=== PATIENT | female | born 1950 | race Hispanic/Latino ===

== ENCOUNTER 2022-12-06 05:54 | Observation (INO) | payer OTHER, MEDICARE ==
[2022-12-02 13:01] LABS: BASOPHILS # (AUTO) 0.03 K/uL (0.00-0.20); BASOPHILS % (AUTO) 0.4 % (0.0-5.0); EOSINOPHILS # (AUTO) 0.15 K/uL (0.00-0.70); EOSINOPHILS % (AUTO) 2.2 % (0.0-8.0); HEMATOCRIT 35.1 % (36-48); IMMATURE GRANULOCYTE ABSOLUTE 0.02 K/uL (0-1); LYMPHOCYTES # (AUTO) 2.3 K/uL (1.0-4.8); LYMPHOCYTES % (AUTO) 33.5 % (21.0-51.0); MEAN CORPUSCULAR HEMOGLOBIN 26.5 pg (27.0-33.0); MEAN CORPUSCULAR HGB CONC 30.8 g/dL (32.0-36.0); MEAN CORPUSCULAR VOLUME 86.2 fL (79-99); MONOCYTES # (AUTO) 0.7 K/uL (0.1-1.0); NEUTROPHILS # (AUTO) 3.6 K/uL (1.8-7.7); NEUTROPHILS % (AUTO) 53.6 % (40.0-77.0); PLATELET COUNT (AUTO) 252 K/uL (130-400); RED BLOOD CELL COUNT(AUTO) 4.07 MIL/uL (4.00-5.50); WHITE BLOOD COUNT (AUTO) 6.7 K/uL (4.8-10.8)
[2022-12-02 13:15] LABS: CREATININE 0.5 mg/dL (0.5-1.5); POTASSIUM 4.5 mmol/L (3.5-5.1)
[2022-12-02 13:18] LABS: INR 0.94 (0.85-1.15); PROTHROMBIN TIME 10.9 SEC (9.6-11.6)
[2022-12-02 13:19] LABS: PARTIAL THROMBOPLASTIN TIME 26.6 SEC (26.3-35.5)
[2022-12-02 13:32] VITALS: BP 148/65; PULSE 64; RESP 20
[~2022-12-06] VITALS: Ht 147.3 cm; Wt 54.4 kg
[2022-12-06] VITALS (26 sets, daily range): BP systolic 94–165; BP diastolic 53–80; PULSE 62–86; RESP 15–20; O2SAT 97–100
[~2022-12-06 05:54] MED LIST: ALEN70TA80 PO; CEFAZOLIN SODIUM 2 GM VIAL IVPB ONE; LEVO75CA5 PO; LISI10TA24 PO; OMEP40CA21 PO; PRAV20TA4 PO
[2022-12-06] MEDS ORDERED: CEFAZOLIN SODIUM 2 GM VIAL ONE (09:01)
[2022-12-06] MEDS ORDERED: LACTATED RINGERS 1000ML 1,000 ML IV ONE (09:02)
[2022-12-06] MEDS ORDERED: LIDOCAINE PF 100MG/5ML (2%) SYRINGE 5ML ONE (14:09)
[2022-12-06] MEDS ORDERED: PROPOFOL 10 MG/ML 20ML VIAL IV ONE (14:09)
[2022-12-06] MEDS ORDERED: ROCURONIUM 10MG/1ML SYR 10 MG/ML ML ONE (14:10)
[2022-12-06] MEDS ORDERED: FENTANYL CITRATE PF 50 MCG/1 ML 2ML VIAL ONE (14:10)
[2022-12-06] MEDS ORDERED: CEFAZOLIN SODIUM 2 GM VIAL IVPB ONE (14:20)
[2022-12-06] MEDS ORDERED: EPHEDRINE SULFATE 50 MG/ML AMPULE ONE (14:35)
[2022-12-06] MEDS ORDERED: ROPIVACAINE 0.5% 5MG/ML 30ML IJ ONE (15:52)
[2022-12-06] MEDS ORDERED: POTASSIUM CHLORIDE 10% ELIXIR 20 MEQ/15 ML UDCUP PO PRN (16:00)
[2022-12-06] MEDS ORDERED: POTASSIUM CHLORIDE 20MEQ/100ML 100 ML IV PRN (16:00)
[2022-12-06] MEDS ORDERED: KCL 20 MEQ ERTAB PO PRN (16:00)
[2022-12-06] MEDS ORDERED: HYDROCODONE/ACETAMINOPHEN 10/325 MG TAB PO PRN (16:00)
[2022-12-06] MEDS ORDERED: MEPERIDINE-PF 25 MG/ML SYG ONE ×2 (16:23→16:35)
[2022-12-06] MEDS ORDERED: ACETAMINOPHEN 1,000 MG/100 ML VIAL IV ONE (17:19)
[2022-12-06] MEDS: ACETAMINOPHEN 1,000 MG/100 ML VIAL IV SCH ×2 (17:20→22:02)
[2022-12-06] MEDS: 0.9%NACL 1000ML 1,000 ML IV SCH (17:49)
[2022-12-06] MEDS ORDERED: CALDOLOR 800MG+NS 250ML 250 ML IV ONE (17:50)
[2022-12-06] MEDS: IBUPROFEN 800MG + NS 250ML IV SCH (18:16)
[2022-12-06] MEDS: FAMOTIDINE 20MG TAB PO SCH (20:57)
[2022-12-06] MEDS: ASPIRIN 81 MG EC TAB PO SCH (20:57)
[2022-12-06] MEDS: CEFAZOLIN SODIUM 2 GM VIAL IVPB SCH (20:57)
[2022-12-06] MEDS: MORPHINE 4 MG SYG IVP PRN (21:01)
[2022-12-07] VITALS (9 sets, daily range): BP systolic 93–122; BP diastolic 48–60; PULSE 69–88; RESP 16–19; O2SAT 97–98
[2022-12-07] MEDS: IBUPROFEN 800MG + NS 250ML IV SCH ×2 (02:26→10:48)
[2022-12-07] MEDS: CEFAZOLIN SODIUM 2 GM VIAL IVPB SCH (03:15)
[2022-12-07] MEDS: 0.9%NACL 1000ML 1,000 ML IV SCH ×2 (03:16→11:21)
[2022-12-07] MEDS: ACETAMINOPHEN 1,000 MG/100 ML VIAL IV SCH (03:46)
[2022-12-07 03:53] LABS: HEMATOCRIT 28.7 % (36-48); MEAN CORPUSCULAR HEMOGLOBIN 26.5 pg (27.0-33.0); MEAN CORPUSCULAR HGB CONC 30.7 g/dL (32.0-36.0); MEAN CORPUSCULAR VOLUME 86.4 fL (79-99); RED BLOOD CELL COUNT(AUTO) 3.32 MIL/uL (4.00-5.50); WHITE BLOOD COUNT (AUTO) 5.8 K/uL (4.8-10.8)
[2022-12-07 04:05] LABS: CREATININE 0.5 mg/dL (0.5-1.5); POTASSIUM 3.9 mmol/L (3.5-5.1)
[2022-12-07] MEDS: MORPHINE 4 MG SYG IVP PRN (04:11)
[2022-12-07] MEDS: ONDANSETRON 4MG INJ IVP PRN ×2 (04:30→10:47)
[2022-12-07] MEDS: LEVOTHYROXINE 75 MCG TABLET PO SCH (07:02)
[2022-12-07] MEDS ORDERED: NON-FORMULARY MEDICATION 1 EACH (Levothyroxine Sodium (Levothyroxine) 75 MCG) PO SCH (07:30)
[2022-12-07] MEDS: ASPIRIN 81 MG EC TAB PO SCH ×2 (09:00→20:01)
[2022-12-07] MEDS: PANTOPRAZOLE 40 MG TAB DR PO SCH (09:00)
[2022-12-07] MEDS: FAMOTIDINE 20MG TAB PO SCH ×2 (09:00→20:01)
[2022-12-07] MEDS ORDERED: NON-FORMULARY MEDICATION 1 EACH (Omeprazole 40 MG) PO SCH (09:00)
[2022-12-07] MEDS: LISINOPRIL 10 MG TABLET PO SCH (09:00)
[2022-12-07] MEDS: POLYETHYLENE GLYCOL 3350 17 GM POWD.PACK PO SCH (09:01)
[2022-12-07] MEDS: FERROUS GLUCONATE 324MG TABLET.DR PO SCH (20:01)
[2022-12-07] MEDS: HYDROCODONE/ACETAMINOPHEN 5/325 MG TAB PO PRN (20:02)
[2022-12-08] VITALS (7 sets, daily range): BP systolic 115–134; BP diastolic 52–64; PULSE 77–91; RESP 16–19; O2SAT 96–97
[2022-12-08] MEDS: HYDROCODONE/ACETAMINOPHEN 5/325 MG TAB PO PRN ×3 (01:37→18:16)
[2022-12-08] MEDS: LEVOTHYROXINE 75 MCG TABLET PO SCH (05:04)
[2022-12-08] MEDS: FERROUS GLUCONATE 324MG TABLET.DR PO SCH ×2 (08:43→19:43)
[2022-12-08] MEDS: PANTOPRAZOLE 40 MG TAB DR PO SCH (08:43)
[2022-12-08] MEDS: POLYETHYLENE GLYCOL 3350 17 GM POWD.PACK PO SCH (08:43)
[2022-12-08] MEDS: ASPIRIN 81 MG EC TAB PO SCH ×2 (08:44→19:43)
[2022-12-08] MEDS: FAMOTIDINE 20MG TAB PO SCH ×2 (08:44→19:43)
[2022-12-08] MEDS: LISINOPRIL 10 MG TABLET PO SCH (08:45)
[2022-12-09 04:00] VITALS: BP 135/53; PULSE 84; RESP 16
[2022-12-09] MEDS: LEVOTHYROXINE 75 MCG TABLET PO SCH (05:27)
[2022-12-09 07:10] VITALS: O2SAT 97
[2022-12-09 08:00] VITALS: BP 131/59; PULSE 85; RESP 18
[2022-12-09] MEDS: FERROUS GLUCONATE 324MG TABLET.DR PO SCH (08:11)
[2022-12-09] MEDS: PANTOPRAZOLE 40 MG TAB DR PO SCH (08:11)
[2022-12-09] MEDS: FAMOTIDINE 20MG TAB PO SCH (08:11)
[2022-12-09] MEDS: ASPIRIN 81 MG EC TAB PO SCH (08:11)
[2022-12-09] MEDS: HYDROCODONE/ACETAMINOPHEN 5/325 MG TAB PO PRN (08:12)
[2022-12-09] MEDS: LISINOPRIL 10 MG TABLET PO SCH (08:12)
[2022-12-09] MEDS: POLYETHYLENE GLYCOL 3350 17 GM POWD.PACK PO SCH (08:12)
[2022-12-09] MEDS ORDERED: BISACODYL 10 MG SUPP.RECT RC PRN (16:00)
== END 2022-12-09 10:15 | disposition home or self-care (01) ==
LOC: DAH 05:54 → DAHIP 05:55 → DAH 05:55 → 4DH 17:30
PROVIDERS: ADMIT Orthopaedic Surgery; ATTEND Orthopaedic Surgery
DX: M17.11 Unilateral primary osteoarthritis, right knee (principal); G89.18 Other acute postprocedural pain; M21.061 Valgus deformity, not elsewhere classified, right knee; E03.9 Hypothyroidism, unspecified; M81.0 Age-related osteoporosis without current pathological fracture; I10 Essential (primary) hypertension; Z79.899 Other long term (current) drug therapy
CPT/HCPCS: 36415; 71045; 80048; 85025; 85027; 85610; 85730; 87641; 96365; 96366; 96367; 96375; 96376; 97039; C1713; G0378; J1741; J2001; J2175; J2270; J2405; J2704; J2795; J3010; J3490; J7030; J7120; A4215; A4221; A4222; A4223; A4600; A4649; A4663; A5120; A6212; A6223; A6260; C1776; G0168; J0690